=== PATIENT | male | born 1955 | race Caucasian/White ===

== ENCOUNTER 2019-03-26 15:17 | Emergency (ER) | payer BC, SELFPAY ==
--- NOTE | ~2019-03-26 | XR_ITS ---
EXAMINATION: XR chest 2V DATE: 03/26/2019 15:59 INDICATION: Cough and wheezing. TECHNIQUE: Frontal and lateral views of the chest were obtained. COMPARISON: None. FINDINGS: The chest demonstrates clear lungs without pneumonia, pleural effusion, or pneumothorax. Th e heart size is normal. IMPRESSION: 1. No acute cardiopulmonary disease. Reviewed, dictated and finalized at location A. A MAKER
[2019-03-26 15:29] VITALS: BP 119/73; PULSE 77; RESP 18; TEMP 37.3; O2SAT 97
--- NOTE | 2019-03-26 15:45 | ED.URI ---
HPI - URI/Sore Throat General Chief Complaint: Upper Respiratory Infection Stated Complaint: Cold/Flu symptoms Time Seen by Provider: 03/26/19 15:46 Source: patient and RN notes reviewed Mode of arrival: ambulatory Limitations: no limitations History of Present Illness HPI Narrative: 64 male presents with concern for 2-week history of cough, nasal drainage, sore throat, bilateral ear pain. Reports he smokes 1 pack/day. Reports low-grade fever MD elicited complaint: cough, sore throat and other (Ear pain) Related Data Allergies Allergy/AdvReac Type Severity Reaction Status Date / Time No Known Allergies Allergy Verified 03/26/19 15:35 Review of Systems Review of Systems: Narrative: CONSTITUTIONAL: Reports malaise, fatigue, low-grade fever fever. EYES: Denies visual changes, redness, or discharge. ENT: Reports rhinorrhea, congestion, sinus pain, otalgia and sore throat. CARDIOVASCULAR: Denies chest pain, palpitations, or edema. RESPIRATORY: Reports persistent cough. Denies dyspnea. GASTROINTESTINAL: Denies abdominal pain, nausea, vomiting, diarrhea SKIN: Denies rash or itching. MUSCULOSKELETAL: Reports myalgia. NEUROLOGIC: Denies headache. All systems reviewed & are unremarkable except as noted in HPI and below PMFSH Comments At time of signature, agree with nursing past medical, surgical, social and family history. There is no relevant family history pertinent to the presenting complaint Exam Narrative: Exam Narrative: GENERAL: Well-appearing, well-nourished, and in no acute distress. HEAD: Normocephalic, atraumatic. EYES: PERRLA, conjunctivae clear, and EOMI. ENT: Nares clear, turbinates edematous and erythematous, clear discharge. Mucous membranes moist. Left TM pearly cline with dull light reflex, right TM erythematous and bulging; no tragal tenderness. Oropharynx erythematous without lesions. Tonsils enlarged and without exudate, no drooling, no hoarseness, no trismus. NECK: Supple. No lymphadenopathy CHEST: Poor aeration, scattered wheeze, scattered rhonchi. No rales, or stridor. No respiratory distress, speaks in full sentences. HEART: Regular rate and rhythm. No murmur heard. Normal peripheral pulses. SKIN: Warm, dry, no rash. NEURO: Alert and oriented x3. PSYCH: Normal mood and affect Course Course Emergency Course: Patient is aware of diagnosis, understands and agrees to treatment plan. Anticipatory guidance given. Patient agrees to follow-up as directed and is aware of reasons to seek care at the emergency department. Portions of this record may have been created with voice recognition software Reevaluation(s) Reevaluation #1: DuoNeb given, aeration improved, scattered wheeze Date: 03/26/19 Time: 16:29 Vital Signs Vital signs: Vital Signs Temperature 99.2 F 03/26/19 15:29 Pulse Rate 77 03/26/19 15:29 Respiratory Rate 18 03/26/19 15:29 Blood Pressure 119/73 03/26/19 15:29 Pulse Oximetry 97 03/26/19 15:29 Temperature 99.2 F 03/26/19 15:29 Pulse Rate 77 03/26/19 15:29 Respiratory Rate 18 03/26/19 15:29 Blood Pressure 119/73 03/26/19 15:29 Pulse Oximetry 97 03/26/19 15:29 Reviewed. MDM - URI/Sore Throat MDM Narrative Medical decision making narrative: Differential diagnosis considered: Strep pharyngitis, allergic rhinitis, upper respiratory tract infection, sinusitis, rhinosinusitis, nasopharyngitis. viral pharyngitis, otitis media, otitis externa, pneumonia, bronchitis, viral cough syndrome, viral syndrome, and influenza. Exam findings show no acute concerns or changes; patient is non-toxic appearing and is in no distress. Patient is appropriate for outpatient treatment and follow-up. Imaging Data My impression: Images reviewed, interpreted by radiologist, agree, see report. Radiologist's impression: EXAMINATION: XR chest 2V DATE: 03/26/2019 15:59 INDICATION: Cough and wheezing. TECHNIQUE: Frontal and lateral views of the chest were obtained. COMPARISON: None.
[2019-03-26] MEDS: IPRATROPIUM BR 0.02% INH SOLN 0.5 MG/2.5 ML VIAL INHALATION (16:12)
[2019-03-26] MEDS: ALBUTEROL SULFATE NEB 2.5 MG/3 ML INH INHALATION (16:12)
== END 2019-03-26 16:40 | disposition home or self-care (01) ==
PROVIDERS: Emergency Provider Nurse Practitioner; PCP Family Medicine
DX: J40 Bronchitis, not specified as acute or chronic (principal); H66.001 Acute suppurative otitis media without spontaneous rupture of ear drum, right ear; F17.200 Nicotine dependence, unspecified, uncomplicated
CPT/HCPCS: 71046; 99213; G0463

== ENCOUNTER 2020-12-22 16:00 | Emergency (ER) | payer BC, SELFPAY ==
--- NOTE | ~2020-12-22 | XR_ITS ---
EXAMINATION: XR chest 2V EXAM DATE: 12/22/2020 16:24 INDICATION: Shortness of breath, cough for 3 days. TECHNIQUE: Frontal and lateral projections of the chest obtained and reviewed. Comparison is made to prior examination from 03/26/2019. FINDINGS: Symmetric bilateral nodular densities likely patient's nipples. The lungs are clear. Ther e are no pleural effusions. The cardiomediastinal silhouette is within normal limits. There is no p neumothorax suspected. Patient has diffuse idiopathic skeletal hyperostosis (DISH). IMPRESSION: No acute cardiopulmonary findings. Reviewed, dictated and finalized at location A. TY BELT INSTALLER
[2020-12-22 16:04] VITALS: BP 143/82; PULSE 84; RESP 16; TEMP 37.6; O2SAT 93
--- NOTE | 2020-12-22 16:17 | ED.GENADULT ---
HPI - General Adult General Chief complaint: Shortness of Breath/Dyspnea Stated complaint: Shortness of Breath Time Seen by Provider: 12/22/20 16:03 Source: patient Mode of arrival: ambulatory Limitations: no limitations History of Present Illness HPI narrative: 65 y/o male. PMHx: Bronchitis, Daily cigarette smoker. Presents to [facility] today with acute complaints of nasal congestion, purulent nasal discharge, and non-productive cough for the past 72 hours. Client endorses intermittent dyspnea, worse with 'coughing fits'. No fever, chills. No chest pain, wheezing, edema. He denies known ill contacts. He is without additional acute c/o illness upon PE. Related Data Allergies Allergy/AdvReac Type Severity Reaction Status Date / Time No Known Allergies Allergy Verified 03/26/19 15:35 Review of Systems Review of Systems: CONSTITUTIONAL: Denies fever, chills, sweats. EYES: Denies visual changes, redness, discharge. ENT: Positive rhinorrhea, congestion. No sore throat, otalgia. CARDIOVASCULAR: Denies chest pain, palpitations, edema. RESPIRATORY: Positive intermittent dyspnea & cough. No wheezing. GASTROINTESTINAL: Denies abdominal pain, nausea, vomiting, diarrhea. GENITOURINARY: Denies dysuria, hematuria, abnormal discharge SKIN: Denies rash or itching. MUSCULOSKELETAL: Denies acute back pain, joint pain, or myalgia. NEUROLOGIC: Denies numbness, or focal weakness. PSYCHIATRIC: Denies anxiety or depression. All systems reviewed & are unremarkable except as noted in HPI and below Exam Narrative: GENERAL: This is a well-nourished, well-developed adult, in no apparent distress. HEAD: normocephalic, atraumatic. EYES: PERRL. Sclera clear/white. EARS: External ears normal, auditory canals clear and without drainage, TMs normal. NOSE: External nose normal. Positive Rhinorrhea and congestion. No obstruction, nares patent. THROAT: Mucous membranes moist, posterior pharynx clear. No exudates. NECK: Neck supple, non-tender without lymphadenopathy, masses or thyromegaly. CARDIOVASCULAR: Regular rate and rhythm without murmurs, gallops, or rubs. No edema. No pallor. RESPIRATORY: Upper airway Rhonchi, cleared with cough. Breath sounds equal bilaterally. No wheezes, rales, or stridor. GASTROINTESTINAL: Abdomen soft, non-tender, nondistended. Bowel sounds are active. No guarding. SKIN: warm, intact, good texture and turgor. NEURO: Alert, active, and age appropriate. No focal neurologic deficits. EXTREMITIES: Negative. Course Vital Signs Vital signs: Vital Signs Temperature 37.6 C 12/22/20 16:04 Pulse Rate 84 12/22/20 16:04 Respiratory Rate 16 12/22/20 16:04 Blood Pressure 143/82 H 12/22/20 16:04 Pulse Oximetry 93 12/22/20 16:04 Temperature 37.6 C 12/22/20 16:04 Pulse Rate 84 12/22/20 16:04 Respiratory Rate 16 12/22/20 16:04 Blood Pressure 143/82 H 12/22/20 16:04 Pulse Oximetry 93 12/22/20 16:04 The patient has been informed that they may have pre-hypertension or Hypertension based on a BP reading in the clinic. It is recommended that the patient call the primary care provider listed on their discharge instructions or a physician of their choice as soon as possible (within 1-2week) to arrange follow up for further evaluation of possible pre-hypertension or hypertension. Medical Decision Making MDM Narrative Medical decision making narrative: -No respiratory distress, appears non-toxic. -Plain Film chest imaging reveals no acute cardiopulmonary processes. -Rapid SARS COVID negative. -Start ZPack & Medrol dose pack to cover respiratory pathogens, suspect also most likely some component of COPD type changes w/exacerbation (Daily smoker, 1PPD, > 20 years, ect). -OP POC, AVS, & Medication instructions reviewed. -Smoking cessation is advised. -PCP F/U 1 WK. -ER W/sudden difficulty breathing, development of chest pain, or additional emergent health status changes. Pt agrees. Vit
== END 2020-12-22 16:45 | disposition home or self-care (01) ==
PROVIDERS: Emergency Provider Nurse Practitioner Adult Health
DX: J40 Bronchitis, not specified as acute or chronic (principal); J06.9 Acute upper respiratory infection, unspecified; Z20.822 Contact with and (suspected) exposure to COVID-19
CPT/HCPCS: 71046; 87426; 99213; C9803; G0463

== ENCOUNTER 2022-01-08 14:33 | Emergency (ER) | payer BC, SELFPAY ==
--- NOTE | 2022-01-08 14:42 | ED.URI ---
HPI - URI/Sore Throat General Chief Complaint: Upper Respiratory Infection Stated Complaint: Sore Throat/Ear Pain Time Seen by Provider: 01/08/22 15:05 Source: patient Mode of arrival: ambulatory Limitations: no limitations History of Present Illness HPI Narrative: Mr. Edson reardon is a 66-year-old male patient presenting to the clinic today with complaints of sore throat, sinus pressure,and ear pain x 1 week. He reports he is bringing up some yellow phlegm with coughing and also yellow nasal drainage. He reports that he is having bilateral ear pain. Denies any fever or chills MD elicited complaint: sore throat and nasal congestion Related Data Allergies Allergy/AdvReac Type Severity Reaction Status Date / Time No Known Allergies Allergy Verified 01/08/22 14:59 Review of Systems Review of Systems: Pertinent positives per HPI. Patient denies any fever, chills, rash, headache, visual changes, dizziness, cough, shortness of breath, chest pain, palpitations, nausea, vomiting, diarrhea, constipation, abdominal pain, or any urinary issues. PMFSH Comments At the time of my signature, I reviewed and agree with the nursing past medical, surgical, social, and family history. There is no relevant family history pertinent to the patient complaint. Exam Narrative: General: Well-developed, well nourished, in no apparent distress Head: Normocephalic, atraumatic Eyes: Pupils equally round and reactive to light bilaterally, EOM intact, sclera and conjunctive clear, no discharge, lids normal Ears: right TMs intact , dull, red, left TM intact, red, bulging ear canals clear, no drainage, grossly hearing normal. Nose: Nares patent, yellow nasal discharge, moderate inflammation, maxillary and frontal sinus tenderness. Mouth: Oral pharynx without lesions or masses, good dentition, MMM. oropharynx red, postnasal drip Neck: Supple, trachea midline, no enlargement of anterior or posterior cervical nodes, no thyroid masses or goiter palpable. Cardio: Regular rate and rhythm, s1 and s2 normal, no murmur appreciated. Resp: Clear to auscultation bilaterally, no rhonchi, rales, wheezing or rubs Course Course Emergency Course: Portions of this record may have been created with voice recognition software. Level of Care: Express Care Visit Vital Signs Vital signs: Vital Signs Temperature 37.2 C 01/08/22 14:59 Pulse Rate 72 01/08/22 14:59 Respiratory Rate 16 01/08/22 14:59 Blood Pressure 145/80 H 01/08/22 14:59 Pulse Oximetry 100 01/08/22 14:59 Oxygen Delivery Room Air 01/08/22 14:59 Temperature 37.2 C 01/08/22 15:03 Pulse Rate 72 01/08/22 15:03 Respiratory Rate 16 01/08/22 15:03 Blood Pressure 145/80 H 01/08/22 15:03 Pulse Oximetry 100 01/08/22 15:03 Oxygen Delivery Room Air 01/08/22 15:03 Vital signs reviewed MDM - URI/Sore Throat MDM Narrative Medical decision making narrative: At the time of visit patient is resting comfortably on the exam table. I suspect patient has left otitis media and sinusitis. Augmentin and prednisone. Supportive measures were discussed with the patient and he voiced understanding of discharge instructions and agrees to treatment plan Differential Diagnosis Differential diagnosis: Likely upper respiratory infection, otitis media, sinusitis, viral infection, bronchitis, influenza, pharyngitis and other ( COVID) Lab Data Labs: Influenza A Screen Negative Reference Range: Negative Influenza B Screen Negative Reference Range: Negative Discharge Plan Discharge Clinical Impression: Sinusitis, Acute left otitis media Patient Disposition: Home, Self-Care Condition: Stable Instructions: Antibiotic Form, Sinusitis (ED), Ear Infection (ED) Additional Instructions: Take prescription medications only as prescribed- Augment
[2022-01-08 14:59] VITALS: BP 145/80; PULSE 72; RESP 16; TEMP 37.2; O2SAT 100
[2022-01-08 15:03] VITALS: BP 145/80; PULSE 72; RESP 16; TEMP 37.2; O2SAT 100
== END 2022-01-08 15:25 | disposition home or self-care (01) ==
PROVIDERS: Emergency Provider Nurse Practitioner Family
DX: J32.9 Chronic sinusitis, unspecified (principal); H66.92 Otitis media, unspecified, left ear
CPT/HCPCS: 87804; 99213; G0463

== ENCOUNTER 2023-05-22 15:42 | Emergency (ER) | payer BC, SELFPAY ==
[2023-05-22 15:48] VITALS: BP 141/85; PULSE 84; RESP 20; TEMP 36.6; O2SAT 98
--- NOTE | 2023-05-22 15:56 | ED.SKABFB ---
HPI - Skin/Abscess/Foreign Bdy General Chief complaint: Skin/Abscess/Foreign Body Stated complaint: [place] History of Present Illness HPI narrative: Patient presents with a itchy rash to his face back of his neck his back abdomen and both legs. Patient states he got into poison [place] 2 weeks ago and has been trying multiple [id number] remedies with no relief in his symptoms. Related Data Allergies Allergy/AdvReac Type Severity Reaction Status Date / Time No Known Allergies Allergy Verified 05/22/23 15:54 Review of Systems Review of Systems: CONSTITUTIONAL: Denies fever, chills, or sweats. EYES: Denies visual changes, redness, or discharge. ENT: Denies rhinorrhea, congestion, sore throat, or otalgia. CARDIOVASCULAR: Denies chest pain, palpitations, or edema. RESPIRATORY: Denies cough or dyspnea. GASTROINTESTINAL: Denies abdominal pain, nausea, vomiting, or diarrhea. GENITOURINARY: Denies dysuria or hematuria. SKIN: Denies rash or itching. MUSCULOSKELETAL: Denies back pain, joint pain, or myalgia. NEUROLOGIC: Denies headache, numbness, or weakness. PSYCHIATRIC: Denies anxiety or depression. PMFSH Comments At time of signature, agree with nursing past medical, surgical, social and family history. There is no relevant family history pertinent to the presenting complaint Exam Narrative: The patient is a well-developed, well-nourished in no acute distress. SKIN: Skin is warm and dry without erythema, swelling or exudate. There is good turgor. No tenting. RASH CONSISTENT WITH RHUS DERMATITIS. LINEAR GUARDADO WITH WET LIKE APPEARS ON NEW AREAS. DIFFERENT STAGES PRESENT. REDNESS TO LESIONS. NO SIGNS OF INFECTION OR CELLULITIS/ABSCESS. NO VESICLES. NO ULCERATIONS. NO RAISED URTICARIAL LESIONS. NO LESIONS ALONG THE WAISTBAND OR IN WEB SPACES. NO BURROWS. NO PETECHIAE. HEAD: Atraumatic. Normocephalic. No temporal or scalp tenderness. EYES: Moist and bright. Sclera and conjunctivae normal. No discharge. PERRLA. Extraocular motions intact. Gross visual acuity intact. EARS: Pinna is normal shape and contour. Clear external auditory canals. TM pearly farley with good cone of light, no erythema or suppuration. Bilateral cerumen noted no gross hearing deficit. NOSE: pink, moist mucosa with good air movement. Clear rhinorrhea without nasal flaring. Septum midline. Mouth: moist mucous membranes. THROAT; mild erythema noted to posterior oropharynx with moderate postnasal drainage. Without exudate or ulceration.. Uvula midline. Normal movement of soft palate. NECK: Supple and nontender with full range of motion without discomfort. No meningeal signs. LUNGS: Equal and bilateral breath sounds without wheezes, rales or rhonchi. CHEST: The chest wall is without retractions or use of accessory muscles. HEART: Has a regular rate and rhythm without murmur, gallops, click or rub. ABDOMEN: Soft, nontender with positive active bowel sounds. No rebound tenderness. EXTREMITIES: Without cyanosis, clubbing or edema. Equal 2+ distal pulses and 2 second capillary refill noted. NEUROLOGIC: alert, active, . The patient moves all extremities with normal muscle strength. Normal muscle tone is noted. Normal coordination is noted. NO focal neurological findings noted. Course Course Level of Care: Express Care Visit Vital Signs Vital signs: Vital Signs Temperature 36.6 C 05/22/23 15:48 Pulse Rate 84 05/22/23 15:48 Respiratory Rate 20 05/22/23 15:48 Blood Pressure 141/85 H 05/22/23 15:48 Pulse Oximetry 98 05/22/23 15:48 Oxygen Delivery Room Air 05/22/23 15:48 Temperature 36.6 C 05/22/23 15:48 Pulse Rate 84 05/22/23 15:48 Respiratory Rate 20 05/22/23 15:48 Blood Pressure 141/85 H 05/22/23 15:48 Pulse Oximetry 98 05/22/23 15:48 Oxygen Delivery Room Air 05/22/23 15:48 Please SHOLA schedule a followup visit with your personal physician for further evaluation and treatment. Including recheck and discussion of you
[2023-05-22] MEDS: methylPREDNISolone SOD SUCC 125 MG VIAL IM (16:02)
== END 2023-05-22 16:05 | disposition home or self-care (01) ==
PROVIDERS: Emergency Provider Nurse Practitioner Family
DX: L23.7 Allergic contact dermatitis due to plants, except food (principal)
CPT/HCPCS: 96372; 99213; G0463; J2919